=== PATIENT | male | born 1980 | race Caucasian/White ===

== ENCOUNTER 2018-08-07 16:15 | Inpatient (IN) | payer OTHER ==
[2018-08-07 18:13] LABS: ABNORMAL IP MESSAGE 1; HEMATOCRIT 19.7 % (42.0-52.0); MEAN CORPUSCULAR HEMOGLOBIN 29.4 pg (29.0-33.0); MEAN CORPUSCULAR VOLUME 86.4 fl (82.0-101.0); MEAN PLATELET VOLUME 10.6 fl (7.4-10.4); PLATELET COUNT 159 10^3/UL (140-415); POSITIVE DIFF @See below; RED BLOOD COUNT 2.28 10^6/ul (4.70-6.10); RED CELL DISTRIBUTION WIDTH 14.8 % (11.5-14.5)
[2018-08-07 18:13] LABS: WHITE BLOOD COUNT 9.7 10^3/ul (4.8-10.8)
[2018-08-07 18:17] LABS: INR 1.05; PROTIME 13.8 Sec (11.9-14.9); PT RATIO 1.1
[2018-08-07 18:18] LABS: PARTIAL THROMBOPLASTIN TIME 33.5 Sec (23.0-35.0)
[2018-08-07 18:20] LABS: ADD MAN DIFF? YES
[2018-08-07 18:21] LABS: HEMOGLOBIN 6.7 g/dl (14.0-18.0)
[2018-08-07 18:24] LABS: ALANINE AMINOTRANSFERASE 23 IU/L (13-69); ALBUMIN 3.6 g/dl (3.3-4.9); ALBUMIN/GLOBULIN RATIO 1.33; ALKALINE PHOSPHATASE 96 IU/L (42-121); ANION GAP 21 (5-13); ASPARTATE AMINO TRANSFERASE 16 IU/L (15-46); BILIRUBIN,INDIRECT 0.1 mg/dl (0-1.1); BILIRUBIN,TOTAL 0.1 mg/dl (0.2-1.3); BLOOD UREA NITROGEN 106 mg/dl (7-20); CALCIUM 8.8 mg/dl (8.4-10.2); CARBON DIOXIDE 21 mmol/L (21-31); CHLORIDE 95 mmol/L (97-110); GLUCOSE 115 mg/dl (70-220); LIPASE 189 U/L (23-300); POTASSIUM 5.1 mmol/L (3.5-5.1); SODIUM 137 mmol/L (135-144); TOTAL PROTEIN 6.3 g/dl (6.1-8.1)
[2018-08-07 18:33] LABS: CREATININE 17.76 mg/dl (0.61-1.24); Estimated GFR 3 mL/min (>60)
[2018-08-07 18:34] LABS: TROPONIN-I 0.028 ng/ml (0.000-0.120)
[2018-08-07 19:13] LABS: ANISOCYTOSIS 2+ (0-0); EOSINOPHILS % (M) 1 % (0-7); GIANT THROMBO% (M) 1 % (0-0); LYMPHOCYTES #M 3.1 10^3/ul (0.8-2.9); LYMPHOCYTES % (M) 32 % (15-51); MICROCYTOSIS 1+ (0-0); MONOCYTE #M 1.2 10^3/ul (0.3-0.9); MONOCYTES % (M) 13 % (0-11); PLATELET ESTIMATE NORMAL; POLYCHROMASIA 1+ (0-0); REACTIVE LYMPHOCYTES #M 0.4 10^3/ul (0.0-0.0); REACTIVE LYMPHOCYTES% (M) 5 % (0-0); SEGMENTED NEUTROPHILS (M) % 49 % (39-77); SMUDGE%M 4 % (0-0)
[2018-08-07 19:48] LABS: IMMEDIATE SPIN CROSSMATCH 1 2
[2018-08-07] MEDS ORDERED: ONDANSETRON 4 MG INJ IV (21:00)
[2018-08-08] MEDS ORDERED: PENDING SANTYL ORDER FOR WOUND CARE XX (00:30)
[2018-08-08] MEDS: ZOLPIDEM 5 MG TAB PO (00:36)
[2018-08-08 05:45] LABS: ADD MAN DIFF? NO
[2018-08-08 05:53] LABS: BASOPHIL # 0.1 10^3/ul (0.0-0.1); BASOPHILS % 0.5 % (0.0-2.0); EOSINOPHILS # 0.5 10^3/ul (0.0-0.5); HEMATOCRIT 27.2 % (42.0-52.0); HEMOGLOBIN 9.2 g/dl (14.0-18.0); LYMPHOCYTES # 0.8 10^3/ul (0.8-2.9); LYMPHOCYTES % 7.6 % (15.0-51.0); MEAN CORPUSCULAR HEMOGLOBIN 28.9 pg (29.0-33.0); MEAN CORPUSCULAR HGB CONC 33.8 g/dl (32.0-37.0); MEAN CORPUSCULAR VOLUME 85.5 fl (82.0-101.0); MEAN PLATELET VOLUME 9.9 fl (7.4-10.4); MONOCYTE # 0.6 10^3/ul (0.3-0.9); MONOCYTES % 5.4 % (0.0-11.0); NEUTROPHIL # 8.7 10^3/ul (1.6-7.5); NEUTROPHILS % 81.1 % (39.0-77.0); PLATELET COUNT 134 10^3/UL (140-415); RED BLOOD COUNT 3.18 10^6/ul (4.70-6.10); RED CELL DISTRIBUTION WIDTH 14.1 % (11.5-14.5)
[2018-08-08 05:53] LABS: WHITE BLOOD COUNT 10.7 10^3/ul (4.8-10.8)
[2018-08-08 06:24] LABS: ANION GAP 21 (5-13); BLOOD UREA NITROGEN 114 mg/dl (7-20); CALCIUM 8.2 mg/dl (8.4-10.2); CARBON DIOXIDE 20 mmol/L (21-31); CHLORIDE 95 mmol/L (97-110); GLUCOSE 86 mg/dl (70-220); POTASSIUM 5.2 mmol/L (3.5-5.1); SODIUM 136 mmol/L (135-144)
[2018-08-08 06:32] LABS: CREATININE 18.64 mg/dl (0.61-1.24); Estimated GFR 3 mL/min (>60)
[2018-08-08] MEDS: AZITHROMYCIN 250 MG TAB PO (12:02)
== END 2018-08-08 12:10 | disposition home or self-care (01) | DRG 682 ==
LOC: E/R 16:15 → PP2 19:24
PROC: 30233N1 Transfusion of Nonautologous Red Blood Cells into Peripheral Vein, Percutaneous Approach (ICD-10-PCS; principal; 2018-08-07)
DX: I12.0 Hypertensive chronic kidney disease with stage 5 chronic kidney disease or end stage renal disease (principal); N18.6 End stage renal disease; Z99.2 Dependence on renal dialysis; J20.9 Acute bronchitis, unspecified; D63.1 Anemia in chronic kidney disease
CPT/HCPCS: 36415; 36430; 71045; 80048; 80053; 83690; 84484; 85025; 85610; 85730; 86644; 86850; 86900; 86901; 86920; 87081; 93005; 99285-25